=== PATIENT | male | born 1995 | race African-American/Black ===

== ENCOUNTER 2024-10-05 23:28 | Emergency (ER) | payer SELFPAY ==
[~2024-10-05] VITALS: Ht 177.8 cm; Wt 77.3 kg
[2024-10-05 23:32] VITALS: BP 131/83; PULSE 88; RESP 18; TEMP 98.2; O2SAT 99
== END 2024-10-06 04:11 | disposition still patient (30) ==
LOC: EMS 10-06 04:11
DX: M25.512 Pain in left shoulder (principal); Z53.21 Procedure and treatment not carried out due to patient leaving prior to being seen by health care provider